=== PATIENT | female | born 1990 | race Hispanic/Latino ===

== ENCOUNTER 2023-09-19 23:53 | Inpatient (IN) | payer MEDICAID, SELFPAY ==
[2023-09-20 00:36] VITALS: BMI 32.2
[2023-09-20] MEDS ORDERED: hydrALAZINE 20 MG/ML VIAL SLOW IVP PRN ×2 (01:39→05:24)
[2023-09-20] MEDS ORDERED: Lidocaine 1% (PF) 30 ML VIAL SC PRN (01:39)
[2023-09-20] MEDS ORDERED: Acetaminophen 500 MG TAB PO PRN (01:39)
[2023-09-20] MEDS ORDERED: Diphenoxylate HCl/Atropine Tablet PO PRN (01:39)
[2023-09-20] MEDS ORDERED: Methylergonovine 0.2 MG/ML VIAL IM PRN ×2 (01:39→05:24)
[2023-09-20] MEDS ORDERED: Carboprost 250 MCG/ML AMP IM PRN (01:39)
[2023-09-20] MEDS ORDERED: Promethazine HCl 25 MG/ML VIAL IM PRN (01:39)
[2023-09-20] MEDS ORDERED: Misoprostol 200 MCG TAB PR PRN (01:39)
[2023-09-20] MEDS ORDERED: Tranexamic Acid 1,000 MG/10 ML VIAL IVP PRN (01:39)
[2023-09-20] MEDS ORDERED: Ibuprofen 800 MG TAB PO PRN (01:39)
[2023-09-20] MEDS ORDERED: Ondansetron PF 4 MG/2 ML Vial IVP PRN ×2 (01:39→05:24)
[2023-09-20] MEDS ORDERED: Lactated Ringer's 1,000 ML IV SCH (01:45)
[2023-09-20] MEDS ORDERED: Oxytocin 30 units/NS 500 ML 500 ML IV SCH ×2 (01:45→05:30)
[2023-09-20 01:51] LABS: Hematocrit 35.2 % (34.9-44.5); Hemoglobin 12.1 g/dL (12.0-15.5); Mean Corpuscular HGB CONC 34.4 g/dL (32.0-36.0); Mean Corpuscular Hemoglobin 31.8 pg (27.0-33.0); Mean Corpuscular Volume 92.4 fl (81.6-98.3); Mean Platelet Volume 11.9 fl (7.4-10.4); Platelet Count 192 10x3/uL (150-450); RBC Distribution Width 13.9 % (11.5-14.5); Red Blood Cell (RBC) Count 3.81 10x6/uL (3.90-5.03); White Blood Cell (WBC) Count 9.6 10x3/uL (3.5-10.5)
[2023-09-20 02:17] LABS: HBSAg Index 0.26 S/CO (0-0.99); Hep B Surf Ag - L&D Non-Reactive S/CO (NonReactive)
[2023-09-20 02:19] LABS: Syphilis Antibody Nonreactive (Nonreactive); Syphilis Antibody Index 0.11 S/CO (<1.00 Non-Reactive)
[2023-09-20] MEDS: fentaNYL/Ropivacaine Epidural 100 ML ONE (02:34)
[2023-09-20] MEDS ORDERED: Preparation H Ointment 28 GM TUBE PR PRN (05:24)
[2023-09-20] MEDS ORDERED: Lanolin Ointment 7 GM TUBE TOP PRN (05:24)
[2023-09-20] MEDS ORDERED: Milk Of Magnesia 30 ML UDCUP PO PRN (05:24)
[2023-09-20] MEDS ORDERED: Misoprostol 200 MCG TAB VAG PRN (05:24)
[2023-09-20] MEDS ORDERED: Benzocaine-Menthol 82.5 ML CAN TOP PRN (05:24)
[2023-09-20] MEDS ORDERED: Bisacodyl 10 MG SUPP PR PRN (05:24)
[2023-09-20] MEDS ORDERED: diphenhydrAMINE 25 MG CAP PO PRN (05:24)
[2023-09-20] MEDS ORDERED: Bupivacaine 0.25% HCL 30 ML VIAL ONE (08:00)
[2023-09-20] MEDS: Docusate 100 MG CAP PO SCH (08:30)
[2023-09-20] MEDS: Prenatal Vitamin 1 TAB PO SCH (08:30)
[2023-09-20] MEDS: Ferrous Sulfate 325 MG TAB PO SCH (08:43)
[2023-09-20] MEDS: Ibuprofen 800 MG TAB PO SCH (08:43)
[2023-09-20] MEDS: Boostrix 0.5 ML (Tdap) VIAL (>/=7 yrs of age) IM ONE (15:47)
[2023-09-21 08:09] VITALS: BP 101/56; TEMP 97.9
== END 2023-09-21 13:25 | disposition home or self-care (01) | DRG 807 ==
LOC: CSHLD/OP 23:53 → CSHLD 09-20 01:27 → CSHPP 09-20 08:10
PROVIDERS: ADMIT Obstetrics & Gynecology; ATTEND Obstetrics & Gynecology
PROC: 10E0XZZ Delivery of Products of Conception, External Approach (ICD-10-PCS; principal; 2023-09-20)
DX: O80 Encounter for full-term uncomplicated delivery (principal); Z37.0 Single live birth; Z3A.39 39 weeks gestation of pregnancy
CPT/HCPCS: 51702; 85027; 86780; 86850; 86900; 86901; 87340; 99285; J0665